=== PATIENT | male | born 1990 | race Caucasian/White ===

== ENCOUNTER → 2019-11-22 | Outpatient (CLI) | payer OTHER ==
--- NOTE | 2019-11-22 09:50 | Diagnostic Imaging Report ---
TECHNIQUE: Magnetic resonance imaging of the RIGHT SHOULDER was performed WITHOUT injected contrast. COMPARISON: None available. HISTORY: Right shoulder pain FINDINGS: MUSCLES AND TENDONS: Rotator Cuff: Tendons: Supraspinatus: Intact Infraspinatus: Intact Teres Minor: Intact Subscapularis: Intact Muscles: No focal muscle atrophy. Biceps Tendon: The long head of the biceps tendon is intact and within the intertubercular groove. GLENOHUMERAL JOINT: Glenoid Labrum: Superior labral fraying. Articular Cartilage: No focal defect. AC JOINT AND ACROMION: Separation of the acromioclavicular and coracoclavicular ligaments with complete tearing of the ligaments. BONE: No acute fracture. SOFT TISSUES: Edema within the soft tissues of the shoulder probably within the deltoid adjacent to the separation. IMPRESSION: Acromioclavicular and coracoclavicular separation. Signed by: Dr. Ludwin Soria M.D. on 11/22/2019 9:46 AM
== END ==
LOC: MRI 07:38
PROVIDERS: ATTEND Family Medicine
DX: M24.212 Disorder of ligament, left shoulder (principal)